=== PATIENT | female | born 1990 | race Two or more races ===

== ENCOUNTER 2021-04-11 06:00 | Inpatient (IN) | payer MEDICAID ==
[~2021-04-11] VITALS: Ht 170.2 cm; Wt 71.3 kg
[2021-04-11] MEDS ORDERED: HALOPERIDOL 5 MG TABLET PO PRN (09:30)
[2021-04-11 10:55] VITALS: BP 139/72
[2021-04-11] MEDS: LORazepam 2 MG TABLET PO PRN (12:26)
[2021-04-11 17:37] VITALS: BP 133/83
[2021-04-12 01:44] VITALS: BP 126/76
[2021-04-12 08:09] LABS: EOSINOPHILS % (AUTO) 9.8 % (1.0-6.0); HEMATOCRIT 38.7 % (36-46); HEMOGLOBIN 12.6 g/dL (12.0-16.0); LYMPHOCYTES # (AUTO) 1.4 K/uL (1.0-4.8); MEAN CORPUSCULAR HEMOGLOBIN 29.1 pg (26.0-34.0); MEAN CORPUSCULAR HGB CONC 32.5 G/dL (31.0-37.0); MEAN CORPUSCULAR VOLUME 90 fL (80-100); MONOCYTES # (AUTO) 0.3 K/uL (0.1-1.0); MONOCYTES % (AUTO) 8.5 % (2.0-9.0); NEUTROPHILS # (AUTO) 1.7 K/uL (1.8-7.7); NEUTROPHILS % (AUTO) 44.7 % (40.0-70.0); PLATELET COUNT (AUTO) 312 K/uL (150-450); RED BLOOD CELL COUNT(AUTO) 4.31 MIL/uL (4.00-5.20); RED CELL DISTRIBUTION WIDTH 14.2 % (11.5-14.5)
[2021-04-12 08:22] LABS: HEMOGLOBIN A1C 5.1 % (3.8-5.6)
[2021-04-12 08:37] VITALS: BP 120/68
[2021-04-12 08:46] LABS: ALANINE AMINOTRANSFERASE 19 U/L (12-78); ALBUMIN 3.1 g/dL (3.4-5.0); ALKALINE PHOSPHATASE 64 U/L (46-116); ANION GAP 11 mmol/L (8-16); ASPARTATE AMINOTRANSFERASE 11 U/L (15-37); BILIRUBIN,TOTAL 0.3 mg/dL (0.1-1.0); CALCIUM, TOTAL 8.5 mg/dL (8.8-10.5); CARBON DIOXIDE 28 mmol/L (22-29); CHLORIDE 105 mmol/L (98-107); CHOL/HDL RATIO 3.4 (3.9-5.7); CHOLESTEROL 158 mg/dL (131-200); CREATININE 0.67 mg/dL (0.60-1.30); FREE T4 (FREE THYROXINE) 0.67 ng/dL (0.76-1.46); GLOMERULAR FILTR. RATE CALC > 60 mL/min (>60); GLUCOSE,RANDOM 83 mg/dL (70-110); HCG,QUANTITATIVE 1 mIU/mL (0-6); HDL CHOLESTEROL 47 mg/dL (40-60); LDL CHOL (CALC.) 104 mg/dL (0-130); POTASSIUM 4.2 mmol/L (3.5-5.1); SODIUM SERUM 144 mmol/L (136-145); THYROID STIMULATING HORMONE 0.92 uIU/mL (0.36-3.74); TOTAL PROTEIN, SERUM 6.6 g/dL (6.4-8.2); TRIGLYCERIDES 34 mg/dL (15-150); UREA NITROGEN, BLOOD 13 mg/dL (7-18)
[2021-04-12] MEDS: LORazepam 2 MG TABLET PO PRN (09:22)
[2021-04-12] MEDS: TRIAMCINOLONE 0.1% 60 ML LOTION TP SCH ×2 (11:00→16:25)
[2021-04-12] MEDS ORDERED: BENZOCAINE/MENTHOL LOZENGE PO PRN (11:00)
[2021-04-12] MEDS ORDERED: IBUPROFEN 600 MG TABLET PO PRN (11:00)
[2021-04-12] MEDS ORDERED: BACITRACIN 28 GM OINTMENT TP PRN (11:00)
[2021-04-12] MEDS ORDERED: ALBUTEROL SULFATE HFA 90 MCG/PUFF 8 GM INHALER IH PRN (11:00)
[2021-04-12] MEDS ORDERED: OMEPRAZOLE 20 MG CAPSULE PO PRN (11:00)
[2021-04-12] MEDS ORDERED: MAG HYDROX/AL HYDROX/SIMETH ES 30 ML SUSPENSION UDCUP PO PRN (11:00)
[2021-04-12] MEDS ORDERED: DOCUSATE SODIUM 100 MG CAPSULE PO PRN (11:00)
[2021-04-12] MEDS ORDERED: MAGNESIUM HYDROXIDE SUSPENSION 30 ML UDCUP PO PRN (11:00)
[2021-04-12] MEDS ORDERED: CloNIDine HCL 0.1 MG TABLET PO PRN (11:00)
[2021-04-12] MEDS ORDERED: PETROLATUM,WHITE 28 GM JELLY TP PRN (11:00)
[2021-04-12] MEDS ORDERED: LOPERAMIDE HCL 2 MG CAPSULE PO PRN (11:00)
[2021-04-12] MEDS ORDERED: ONDANSETRON HCL 4 MG TABLET PO PRN (11:00)
[2021-04-12] MEDS: RisperiDONE 1 MG TABLET PO SCH ×2 (11:08→16:24)
[2021-04-12] MEDS ORDERED: PHENYLEPHRINE/SHK LV/MIN OIL/PET 57 GM OINTMENT TP PRN (11:15)
[2021-04-12] MEDS ORDERED: INFLUENZA VIRUS VACCINE QVS 2021-22 (6MO+)/PF 60 MCG/0.5 ML SYRINGE IM. ONE (14:15)
[2021-04-12 16:32] VITALS: BP 106/62
[2021-04-13 01:18] VITALS: BP 105/61
[2021-04-13 08:30] VITALS: BP 122/78
[2021-04-13] MEDS: RisperiDONE 1 MG TABLET PO SCH ×2 (08:49→16:00)
[2021-04-13] MEDS: TRIAMCINOLONE 0.1% 60 ML LOTION TP SCH ×2 (08:51→16:00)
[2021-04-13] MEDS: LORazepam 2 MG TABLET PO PRN (16:00)
[2021-04-13 16:30] VITALS: BP 143/75
[2021-04-14 01:02] VITALS: BP 132/70
[2021-04-14 08:23] VITALS: BP 119/68
[2021-04-14] MEDS: RisperiDONE 2 MG TABLET PO SCH ×2 (08:52→16:01)
[2021-04-14] MEDS: TRIAMCINOLONE 0.1% 60 ML LOTION TP SCH ×2 (08:52→16:01)
[2021-04-14] MEDS: LORazepam 2 MG TABLET PO PRN ×2 (08:52→16:01)
[2021-04-14 16:18] VITALS: BP 111/86
[2021-04-15 02:20] VITALS: BP 116/74
[2021-04-15 08:21] VITALS: BP 118/66
[2021-04-15] MEDS: RisperiDONE 2 MG TABLET PO SCH ×2 (08:31→16:15)
[2021-04-15] MEDS: TRIAMCINOLONE 0.1% 60 ML LOTION TP SCH ×2 (08:31→16:15)
[2021-04-15] MEDS: LORazepam 2 MG TABLET PO PRN ×2 (08:32→16:15)
[2021-04-15 16:40] VITALS: BP 113/78
[2021-04-16 00:28] VITALS: BP 110/68
[2021-04-16] MEDS: RisperiDONE 2 MG TABLET PO SCH ×2 (08:12→16:04)
[2021-04-16] MEDS: TRIAMCINOLONE 0.1% 60 ML LOTION TP SCH ×2 (08:12→16:03)
[2021-04-16] MEDS: LORazepam 2 MG TABLET PO PRN ×2 (08:12→16:04)
[2021-04-16 08:17] VITALS: BP 119/83
[2021-04-16 08:44] LABS: APPEARANCE,URINE CLEAR (CLEAR); BILIRUBIN,URINE NEGATIVE (NEGATIVE); GLUCOSE, URINE (UA) NEGATIVE (NEGATIVE); KETONES,URINE NEGATIVE (NEGATIVE); LEUKOCYTE ESTERASE ,URINE NEGATIVE (NEGATIVE); NITRATE,URINE NEGATIVE (NEGATIVE); OCCULT BLOOD,URINE NEGATIVE (NEGATIVE); PROTEIN,URINE NEGATIVE (NEGATIVE); UROBILINOGEN,URINE 0.2 mg/dL (<=1.0)
[2021-04-16 08:45] LABS: AMPHET/METH SCREEN,URINE NEGATIVE (NEGATIVE); BARBITURATE SCREEN, URINE NEGATIVE (NEGATIVE); BENZODIAZEPINES SCREEN,URINE NEGATIVE (NEGATIVE); CANNABINOID SCREEN,URINE NEGATIVE (NEGATIVE); COCAINE SCREEN,URINE NEGATIVE (NEGATIVE); METHADONE SCREEN, URINE NEGATIVE (NEGATIVE); OPIATE SCREEN,URINE NEGATIVE (NEGATIVE)
[2021-04-16 08:47] LABS: PHENCYCLIDINE SCREEN,URINE NEGATIVE (NEGATIVE)
[2021-04-16 16:04] VITALS: BP 102/73
[2021-04-17 00:35] VITALS: BP 108/65
[2021-04-17] MEDS: ZOLPIDEM TARTRATE 10 MG TABLET PO PRN (02:13)
[2021-04-17] MEDS: TRIAMCINOLONE 0.1% 60 ML LOTION TP SCH ×2 (08:04→17:43)
[2021-04-17] MEDS: RisperiDONE 2 MG TABLET PO SCH ×2 (08:04→17:43)
[2021-04-17 10:09] VITALS: BP 128/68
[2021-04-17] MEDS: ACETAMINOPHEN 325 MG TABLET PO PRN (13:02)
[2021-04-17 16:35] VITALS: BP 133/91
[2021-04-17 19:56] VITALS: BP 126/78
[2021-04-17] MEDS: LORazepam 2 MG TABLET PO PRN (19:56)
[2021-04-17 20:56] VITALS: BP 128/86
[2021-04-18 04:21] VITALS: BP 118/82
[2021-04-18 08:08] VITALS: BP 121/79
[2021-04-18] MEDS: RisperiDONE 2 MG TABLET PO SCH ×2 (08:08→16:02)
[2021-04-18] MEDS: TRIAMCINOLONE 0.1% 60 ML LOTION TP SCH ×2 (08:08→16:02)
[2021-04-18] MEDS: LORazepam 2 MG TABLET PO PRN (08:45)
[2021-04-18 16:11] VITALS: BP 104/78
[2021-04-19 01:08] VITALS: BP 114/72
[2021-04-19 08:09] VITALS: BP 105/65
[2021-04-19] MEDS: LORazepam 2 MG TABLET PO PRN ×2 (08:32→16:01)
[2021-04-19] MEDS: RisperiDONE 2 MG TABLET PO SCH ×2 (08:32→16:01)
[2021-04-19] MEDS: TRIAMCINOLONE 0.1% 60 ML LOTION TP SCH ×2 (08:32→16:01)
[2021-04-19 16:21] VITALS: BP 107/61
[2021-04-19] MEDS: ACETAMINOPHEN 325 MG TABLET PO PRN (16:29)
[2021-04-20 00:40] VITALS: BP 106/67
[2021-04-20 08:07] LABS: COVID AG,FIA SOURCE NASAL SWAB
[2021-04-20] MEDS: RisperiDONE 2 MG TABLET PO SCH (08:10)
[2021-04-20] MEDS: TRIAMCINOLONE 0.1% 60 ML LOTION TP SCH ×2 (08:10→16:03)
[2021-04-20] MEDS: LORazepam 2 MG TABLET PO PRN (08:10)
[2021-04-20 08:35] VITALS: BP 131/65
[2021-04-20] MEDS: RisperiDONE 3 MG TABLET PO SCH (16:03)
[2021-04-20 16:25] VITALS: BP 117/69
[2021-04-20] MEDS: ZOLPIDEM TARTRATE 10 MG TABLET PO PRN (20:33)
[2021-04-21 01:12] VITALS: BP 117/64
[2021-04-21 08:22] VITALS: BP 106/61
[2021-04-21] MEDS: RisperiDONE 3 MG TABLET PO SCH ×2 (09:16→16:03)
[2021-04-21] MEDS: TRIAMCINOLONE 0.1% 60 ML LOTION TP SCH ×2 (09:17→16:03)
[2021-04-21 16:22] VITALS: BP 104/68
[2021-04-22] MEDS: LORazepam 2 MG TABLET PO PRN (00:54)
[2021-04-22] MEDS: ZOLPIDEM TARTRATE 10 MG TABLET PO PRN (00:54)
[2021-04-22 04:42] VITALS: BP 108/64
[2021-04-22 08:58] VITALS: BP 103/64
[2021-04-22] MEDS: TRIAMCINOLONE 0.1% 60 ML LOTION TP SCH ×2 (09:06→16:12)
[2021-04-22] MEDS: RisperiDONE 3 MG TABLET PO SCH ×2 (09:06→16:12)
[2021-04-22 16:39] VITALS: BP 110/53
[2021-04-23 05:12] VITALS: BP 108/60
[2021-04-23] MEDS: TRIAMCINOLONE 0.1% 60 ML LOTION TP SCH ×2 (08:05→16:43)
[2021-04-23] MEDS: RisperiDONE 3 MG TABLET PO SCH ×2 (08:06→16:43)
[2021-04-23] MEDS: LORazepam 2 MG TABLET PO PRN (08:36)
[2021-04-23 08:59] VITALS: BP 100/67
[2021-04-23 16:20] VITALS: BP 101/67
[2021-04-24 01:45] VITALS: BP 108/69
[2021-04-24] MEDS: TRIAMCINOLONE 0.1% 60 ML LOTION TP SCH ×2 (08:01→16:27)
[2021-04-24] MEDS: RisperiDONE 3 MG TABLET PO SCH ×2 (08:01→16:27)
[2021-04-24 08:42] VITALS: BP 102/78
[2021-04-24] MEDS: LORazepam 2 MG TABLET PO PRN (12:25)
[2021-04-24 16:14] VITALS: BP 100/64
[2021-04-25 00:53] VITALS: BP 106/68
[2021-04-25] MEDS: TRIAMCINOLONE 0.1% 60 ML LOTION TP SCH (08:36)
[2021-04-25] MEDS: RisperiDONE 3 MG TABLET PO SCH (08:36)
[2021-04-25] MEDS: LORazepam 2 MG TABLET PO PRN (08:37)
[2021-04-25 09:19] VITALS: BP 118/74
== END 2021-04-25 15:35 | disposition home or self-care (01) | DRG 750 ==
LOC: B3A 09:42
PROVIDERS: ADMIT Psychiatry & Neurology Psychiatry; ATTEND Psychiatry & Neurology Psychiatry
DX: F25.9 Schizoaffective disorder, unspecified (principal); F19.10 Other psychoactive substance abuse, uncomplicated; F32.A Depression, unspecified; Z20.822 Contact with and (suspected) exposure to COVID-19; G47.00 Insomnia, unspecified; K59.00 Constipation, unspecified; F41.9 Anxiety disorder, unspecified; Z23 Encounter for immunization; Z72.0 Tobacco use
CPT/HCPCS: 80053; 80061; 80307; 81003; 83036; 84436; 84439; 84443; 84702; 85025; 87081; 90686; G0480